=== PATIENT | male | born 1990 | race African-American/Black ===

== ENCOUNTER 2024-10-14 23:00 | Emergency (ER) | payer BC ==
[~2024-10-14] VITALS: Ht 177.8 cm; Wt 117.9 kg
[2024-10-14] MEDS ORDERED: LEVE500T9 PO (23:46)
[2024-10-14] MEDS ORDERED: MULT-1045 PO (23:46)
[2024-10-14] MEDS ORDERED: NICO1PAT35 TD (23:46)
[2024-10-14] MEDS ORDERED: GABA800T11 PO (23:46)
[2024-10-14] MEDS ORDERED: AMLO10TA59 PO (23:46)
[2024-10-14] MEDS ORDERED: OMEP20TA5 PO (23:46)
[2024-10-14] MEDS ORDERED: CLON0.1T PO (23:46)
[2024-10-14] MEDS ORDERED: HYDR50CA5 PO (23:46)
[2024-10-14] MEDS ORDERED: TRAZ-182 PO (23:46)
[2024-10-15 00:14] LABS: BASOPHILS # (AUTO) 0.1 K/UL (0.0-0.2); EOSINOPHILS # (AUTO) 0.2 K/uL (0.0-0.7); EOSINOPHILS % (AUTO) 2.9 % (0.0-7.0); HEMATOCRIT 39.4 % (36.7-47.1); HEMOGLOBIN 13.2 g/dL (12.5-16.3); LYMPHOCYTES # (AUTO) 3.2 K/uL (0.8-4.8); LYMPHOCYTES % (AUTO) 39.4 % (20.5-51.5); MEAN CORPUSCULAR HEMOGLOBIN 28.1 uug (23.8-33.4); MEAN CORPUSCULAR HGB CONC 34 g/dL (32.5-36.3); MEAN CORPUSCULAR VOLUME 83.8 fL (73.0-96.2); MONOCYTES # (AUTO) 0.8 K/uL (0.1-1.30); MONOCYTES % (AUTO) 10.3 % (0.0-11.0); NEUTROPHILS # (AUTO) 3.7 K/uL (1.8-8.9); NEUTROPHILS % (AUTO) 46.4 % (38.5-71.5); PLATELET COUNT (AUTO) 211 K/uL (152-348); RED BLOOD CELL COUNT(AUTO) 4.71 MIL/uL (4.06-5.63); RED CELL DISTRIBUTION WIDTH 16.5 % (12.1-16.2); WHITE BLOOD COUNT (AUTO) 8.1 K/uL (3.6-10.2)
[2024-10-15 00:17] LABS: DIFFERENTIAL COMMENT 1
[2024-10-15 00:22] LABS: CALCIUM 9.4 mg/dL (8.5-10.1); CARBON DIOXIDE 28 mmol/L (21-32); CHLORIDE 104 mmol/L (98-107); CREATININE 1.1 mg/dL (0.6-1.3); GLUCOSE 91 mg/dL (74-106); POTASSIUM 4.4 mmol/L (3.5-5.1); SODIUM SERUM 140 mmol/L (136-145); UREA NITROGEN, BLOOD 18 mg/dL (7-18)
[2024-10-15 00:27] LABS: ALANINE AMINOTRANSFERASE 48 U/L (16-63); ALBUMIN 3.7 g/dL (3.4-5.0); ALKALINE PHOSPHATASE 57 U/L (50-136); ASPARTATE AMINOTRANSFERASE 20 U/L (15-37); BILIRUBIN,DIRECT < 0.1 mg/dL (0.0-0.2); BILIRUBIN,TOTAL 0.2 mg/dL (0.2-1.0); TOTAL PROTEIN, SERUM 7.1 g/dL (6.4-8.2)
[2024-10-15 01:25] VITALS: BP 155/89; O2SAT 98
== END 2024-10-15 01:25 | disposition home or self-care (01) ==
LOC: ER 23:00
DX: R22.41 Localized swelling, mass and lump, right lower limb (principal); M79.604 Pain in right leg; M54.50 Low back pain, unspecified; F17.210 Nicotine dependence, cigarettes, uncomplicated; F17.290 Nicotine dependence, other tobacco product, uncomplicated; Z79.899 Other long term (current) drug therapy; Z89.612 Acquired absence of left leg above knee
CPT/HCPCS: 36415; 85025; A4606; A4663